=== PATIENT | female | born 1945 | race Caucasian/White ===

== ENCOUNTER → 2016-11-24 13:05 | Outpatient (CLI) | payer MEDICARE, OTHER | END | disposition home or self-care (01) | LOC: D.US 13:05 | DX: I65.23 Occlusion and stenosis of bilateral carotid arteries (principal) ==

== ENCOUNTER 2017-08-27 09:27 | Emergency (ER) | payer MEDICARE, OTHER ==
[~2017-08-27] VITALS: Ht 157.5 cm; Wt 69.1 kg
[~2017-08-27 09:27] MED LIST: ASPIRIN EC81 M1 PO; ASPIRIN81 MG PO; CATAPRES0.1 MG PO; LOTENSIN40 MG PO; NORVASC10 MG PO; PLAVIX75 MG PO; PRAVACHOL20 MG PO
[2017-08-27 09:36] VITALS: Ht 157.5 cm; Wt 69.1 kg
[2017-08-27 10:26] LABS: BASOPHILS 0.2 % (0-2); EOSINOPHILS 2.8 % (0-7); HEMATOCRIT 44.2 % (36.0-48.0); IMMATURE GRANULOCYTES 0.3 % (0-5); LYMPHOCYTES 34.6 % (15-50); MCH 31.6 pg (26.0-34.0); MCHC 33.9 g/dL (31.0-37.0); MCV 93.2 fL (80.0-100.0); MEAN PLATELET VOLUME 10.4 fL (7.4-10.4); MONOCYTES 6.3 % (2-11); NEUTROPHILS 55.8 % (40-80); PLATELET COUNT 261 10x3/uL (130-400); RBC 4.74 10x6/uL (4.00-5.40); RDW 12.2 % (11.5-14.5); WBC 8.6 10x3/uL (4.8-10.8)
[2017-08-27 10:39] LABS: ALBUMIN 3.8 g/dL (3.4-5.0); ALKALINE PHOSPHATASE 106 U/L (46-116); ALT (SGPT) 24 U/L (10-68); CALC OSMOLALITY 285 mosm/kg (275-300); CALCIUM 9.7 mg/dL (8.5-10.1); CARBON DIOXIDE 27.8 mmol/L (21.0-32.0); CHLORIDE - SERUM 107 mmol/L (98-107); CREATININE - SERUM 0.9 mg/dL (0.6-1.3); GLUCOSE 102 mg/dL (74-106); PROTEIN - SERUM 7.8 g/dL (6.4-8.2); SODIUM 143 mmol/L (136-145); UREA NITROGEN 16 mg/dL (7-18); eGFR NON AFRICAN AMERICAN 65 mL/min (90-120)
[2017-08-27 10:48] LABS: C-REACTIVE PROTEIN 0.4 mg/dL (0.0-0.9); CREATINE KINASE 57 UL (21-215); PRO BNP 32 pg/mL (0-125); THYROID STIMULATING HORMONE 4.22 uIU/mL (0.36-3.74); TROPONIN-I < 0.017 ng/mL (0.000-0.060)
[2017-08-27 11:30] VITALS: BP 159/74
== END 2017-08-27 11:32 | disposition home or self-care (01) ==
LOC: D.ER 09:27
PROVIDERS: Family Medicine
DX: R51 Headache (principal)

== ENCOUNTER → 2017-11-16 10:49 | Outpatient (CLI) | payer MEDICARE, OTHER ==
[2017-08-27 09:36] VITALS: BMI 27.8
== END | disposition home or self-care (01) ==
LOC: D.US 10:49
DX: I65.23 Occlusion and stenosis of bilateral carotid arteries (principal)

== ENCOUNTER → 2018-11-11 13:12 | Outpatient (CLI) | payer MEDICARE, OTHER ==
[2017-08-27 09:36] VITALS: BMI 27.8
== END | disposition home or self-care (01) ==
LOC: D.US 13:12
PROVIDERS: ATTEND Internal Medicine Cardiovascular Disease
DX: I65.23 Occlusion and stenosis of bilateral carotid arteries (principal)

== ENCOUNTER → 2019-11-21 10:34 | Outpatient (CLI) | payer MEDICARE, OTHER ==
[2017-08-27 09:36] VITALS: BMI 27.8
== END | disposition home or self-care (01) ==
LOC: D.US 11-15 11:00
PROVIDERS: ATTEND Internal Medicine Cardiovascular Disease
DX: I65.29 Occlusion and stenosis of unspecified carotid artery (principal)